=== PATIENT | female | born 2000 | race Caucasian/White ===

== ENCOUNTER 2019-01-04 03:49 | Emergency (ER) | payer OTHER ==
[~2019-01-04] VITALS: Ht 160 cm; Wt 53.1 kg
[2019-01-04 03:58] VITALS: Ht 160 cm; Wt 53.1 kg
[2019-01-04 06:00] VITALS: BP 106/68
== END 2019-01-04 06:00 | disposition home or self-care (01) ==
LOC: ED 03:49
DX: R10.2 Pelvic and perineal pain (principal)